=== PATIENT | female | born 1990 | race Caucasian/White ===

== ENCOUNTER 2024-10-12 13:34 | Emergency (ER) | payer OTHER ==
[2024-10-12 13:46] VITALS: RESP 20; TEMP 98.1; BMI 31.8
[2024-10-12] MEDS ORDERED: ACETAMINOPHEN INJECTION 100 ML ONE (14:51)
[2024-10-12] MEDS: ACETAMINOPHEN 1000 MG/100 ML BAG IVPB ONE (15:19)
[2024-10-12] MEDS: SODIUM CHLORIDE 0.9% 500 ML INFUS.BAG IV ONE (15:19)
[2024-10-12 15:28] LABS: ABSOLUTE IMMATURE GRANULOCYTES 0.03 x10^3/uL (0.0-0.031); BASOPHILS # 0.02 x10^3/uL (0.01-0.08); EOSINOPHIL % 0.0 % (0.7-5.8); EOSINOPHILS # 0.00 x10^3/uL (0.04-0.36); MCHC 32.2 g/dl (32.2-35.5); MEAN CELL VOLUME 91.3 fl (79.4-94.8); MEAN PLT VOLUME 10.8 fl (9.4-12.3); MONOCYTE # 0.33 x10^3/uL (0.24-0.86); MONOCYTE % 4.4 % (4.7-12.5); RDW 12.6 % (12.1-16.8)
[2024-10-12 15:32] LABS: EPI CELLS 25 /uL (0-25.1); HYALINE CASTS 0 /uL (0-3.1); URINE APPEARANCE CLEAR; URINE BACTERIA 419 /uL (0-1359); URINE BILIRUBIN NEGATIVE (NEGATIVE); URINE COLOR YELLOW; URINE GLUCOSE (UA) NEGATIVE (NEGATIVE); URINE KETONE NEGATIVE (NEGATIVE); URINE LEUK ESTERASE 3+ (NEGATIVE); URINE NITRITE NEGATIVE (NEGATIVE); URINE PROTEIN NEGATIVE (NEGATIVE); URINE RBC 7 /uL (0-23.9); URINE UROBILINOGEN 0.2 mg/dL (0.2-1.0); URINE WBC 93 /uL (0-25.8)
[2024-10-12 15:44] LABS: GLUCOSE,RANDOM 89.0 mg/dL (74-106)
[2024-10-12 15:45] LABS: INR 0.96 (0.83-1.09); PROTHROMBIN TIME (PATIENT) 10.5 SEC (9.7-13.0); TOT PROT 8.0 g/dl (6.4-8.2)
[2024-10-12 15:46] LABS: CO2 23.0 mmol/L (21-32)
[2024-10-12 15:47] LABS: ALK PHOS 46.0 U/L (40-150)
[2024-10-12 15:48] LABS: ACTIVATED PTT 27.4 SECONDS (25.2-36.5)
[2024-10-12 15:50] LABS: CREATININE 0.64 mg/dL (0.55-1.3); SGOT/AST 27.0 U/L (5-34); SGPT/ALT 18.0 U/L (0-55)
[2024-10-12 16:09] LABS: HCV DIAGNOSTIC IN-HOUSE W/RFLX NON-REACTIVE (NONREACTIVE)
[2024-10-12 16:10] LABS: HIV INTERPRETATION NEGATIVE (NEGATIVE)
[2024-10-12 17:11] VITALS: BP 115/62; PULSE 88
== END 2024-10-12 18:03 | disposition home or self-care (01) ==
LOC: JER 13:34
PROC: 3E033NZ Introduction of Analgesics, Hypnotics, Sedatives into Peripheral Vein, Percutaneous Approach (ICD-10-PCS; principal; 2024-10-12)
DX: R06.02 Shortness of breath (principal); R07.89 Other chest pain; R42 Dizziness and giddiness; R11.0 Nausea; R51.9 Headache, unspecified; R00.0 Tachycardia, unspecified; R13.10 Dysphagia, unspecified
CPT/HCPCS: 36415; 71045-TC-FY; 80053; 81003; 84443; 84484; 84703; 85025; 85379; 85610; 85730; 86803; 87086; 87389; 87637-QW; 93005; 93010; 99285-25